=== PATIENT | female | born 1990 | race Caucasian/White ===

== ENCOUNTER 2017-02-18 13:15 | Emergency (ER) | payer OTHER ==
--- NOTE | 2017-02-18 14:13 | DIAGNOSTIC IMAGING REPORT ---
PROCEDURE: XR CHEST 2 VIEW INDICATION: CHEST PAIN TECHNIQUE: PA and lateral views. COMPARISON: None. FINDINGS: Lungs are clear. Heart and mediastinum are normal. Thorax is normal. IMPRESSION: 1. Negative chest.
--- NOTE | 2017-02-18 14:46 | DIAGNOSTIC IMAGING REPORT ---
PROCEDURE: US ABDOMEN ULTRASOUND-LIMITED INDICATION: RUQ PAIN TECHNIQUE: Rubi scale and color Doppler sonographic images of the abdomen were obtained without comparison. COMPARISON: None. FINDINGS: The liver is normal in size, contour, and echotexture. No mass or intrahepatic biliary dilatation. The gallbladder is normal without stones or sludge. The wall is normal thickness measuring 1.8 mm No pericholecystic fluid or Vazquez sign. The extrahepatic common duct is normal measuring 3.1 mm The visualized pancreas is normal without ductal dilatation or peripancreatic fluid collection. The abdominal aorta is normal in its course and caliber. The retrohepatic inferior vena cava is patent. There is appropriate hepatopetal flow in the portal vein. The right kidney measures 11.5 cm in length. There is no perihepatic or perisplenic ascites. IMPRESSION: 1. Normal abdominal ultrasound.
--- NOTE | 2017-02-18 14:56 | ED ORDER SUMMARY ---
..... Patient: MIRZA SIMON OrderSheet [facility] VisitID: [id number] [place] [address] 26y, F Registration Date/Time: 02/18/2017 ORDER SHEET Weight: 61.2 kg (stated) Allergies: No Known Drug Allergy GENERAL ORDERS: CBC w Diff Urgent (13:39 02/18/2017 EKoroleva P.A.-C) (Ack 13:44 OHkennedynandez) (13:54 SStone R.N.) BMP Urgent (13:39 02/18/2017 EKoroleva P.A.-C) (Cancelled: Other13:39 EKoroleva P.A.-C) UA-Culture if indicated Urgent (13:39 02/18/2017 EKoroleva P.A.-C) (Ack 13:44 OHclaus) (13:54 SStone R.N.) Lipase Urgent (13:39 02/18/2017 EKoroleva P.A.-C) (Ack 13:44 OHkennedynandez) (13:54 SStone R.N.) Chest 2V Urgent (13:43 02/18/2017 EKoroleva P.A.-C) (Ack 13:44 OHernandez) (13:54 SStone R.N.) US Abdomen Limited (No) Urgent (13:43 02/18/2017 EKoroleva P.A.-C) (Ack 13:44 OHernandez) CMP Urgent (13:43 02/18/2017 EKoroleva P.A.-C) (Ack 13:44 OHernandez) (13:54 SStone R.N.) Urine Urgent (13:43 02/18/2017 EKoroleva P.A.-C) (Ack 13:44 OHkennedynandez) (13:54 SStone R.N.) - (allergy documentation please) (14:10 02/18/2017 EKoroleva P.A.-C) (14:29 SStone R.N.) MEDICATION ORDERS: IV FLUIDS: IV Saline Lock (13:39 02/18/2017 EKoroleva P.A.-C) (Ack 13:40 SStone R.N.) (13:54 SStone R.N.) Toradol IV 30 mg (NOW) (14:09 02/18/2017 Gardenia Miller) (Ack 14:20 SStone R.N.) (14:40 SStone R.N.) Zofran IV 4 mg (NOW) (14:09 02/18/2017 Gardenia Miller) (Ack 14:20 SStone R.N.) (14:41 SStone R.N.) ORDER SHEET NOTES: [Electronically signed by Juana Coelho P.A.-C (15:08 02/18/2017)] [Electronically signed by Modesta Sky R.N. (15:13 02/18/2017)] [Electronically locked/signed by Modesta Sky R.N. (15:13 02/18/2017)]
--- NOTE | 2017-02-18 14:56 | ED ORDER SUMMARY ---
..... Patient: MIRZA SIMON OrderSheet VisitID: [id number] [place] [address] 26y, F Registration Date/Time: 02/18/2017 ORDER SHEET Weight: 61.2 kg (stated) Allergies: No Known Drug Allergy GENERAL ORDERS: CBC w Diff Urgent (13:39 02/18/2017 EKoroleva P.A.-C) (Ack 13:44 OHkennedynandez) (13:54 SStone R.N.) BMP Urgent (13:39 02/18/2017 EKoroleva P.A.-C) (Cancelled: Other13:39 EKoroleva P.A.-C) UA-Culture if indicated Urgent (13:39 02/18/2017 EKoroleva P.A.-C) (Ack 13:44 OHclaus) (13:54 SStone R.N.) Lipase Urgent (13:39 02/18/2017 EKoroleva P.A.-C) (Ack 13:44 OHkennedynandez) (13:54 SStone R.N.) Chest 2V Urgent (13:43 02/18/2017 EKoroleva P.A.-C) (Ack 13:44 OHernandez) (13:54 SStone R.N.) US Abdomen Limited (No) Urgent (13:43 02/18/2017 EKoroleva P.A.-C) (Ack 13:44 OHernandez) CMP Urgent (13:43 02/18/2017 EKoroleva P.A.-C) (Ack 13:44 OHernandez) (13:54 SStone R.N.) Urine Urgent (13:43 02/18/2017 EKoroleva P.A.-C) (Ack 13:44 OHkennedynandez) (13:54 SStone R.N.) - (allergy documentation please) (14:10 02/18/2017 EKoroleva P.A.-C) (14:29 SStone R.N.) MEDICATION ORDERS: IV FLUIDS: IV Saline Lock (13:39 02/18/2017 EKoroleva P.A.-C) (Ack 13:40 SStone R.N.) (13:54 SStone R.N.) Toradol IV 30 mg (NOW) (14:09 02/18/2017 Gardenia Miller) (Ack 14:20 SStone R.N.) (14:40 SStone R.N.) Zofran IV 4 mg (NOW) (14:09 02/18/2017 Gardenia Miller) (Ack 14:20 SStone R.N.) (14:41 SStone R.N.) ORDER SHEET NOTES: [Electronically signed by Juana Coelho P.A.-C (15:08 02/18/2017)] [Electronically signed by Modesta Sky R.N. (15:13 02/18/2017)] [Electronically locked/signed by Modesta Sky R.N. (15:13 02/18/2017)]
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
--- NOTE | 2017-02-18 15:13 | ED MAR SUMMARY ---
..... Medication Administration Record [facility] [address] [place] [address] Patient: MIRZA SIMON Visit ID: [id number] 26y, F Weight: 61.2 kg Height/Length: 68 in BMI: 20.5 ALLERGIES: No Known Drug Allergy Given 14:31 02/18/2017 Modesta Sky R.N. Medication Administered: ZOFRAN [IVP] (ONDANSETRON HCL), Dose: 4 mg IVP over 2 minute(s), Site: #1 right AC. Medication Ordered: Zofran IV 4 mg (NOW). Given 14:35 02/18/2017 Modesta Sky R.N. Medication Administered: TORADOL [IVP], Dose: 30 mg IVP over 2 minute(s), Site: #1 right AC. Medication Ordered: Toradol IV 30 mg (NOW).
--- NOTE | 2017-02-18 15:13 | ED MAR SUMMARY ---
..... Medication Administration Record [facility] [address] [place] [address] Patient: MIRZA SIMON Visit ID: [id number] 26y, F Weight: 61.2 kg Height/Length: 68 in BMI: 20.5 ALLERGIES: No Known Drug Allergy Given 14:31 02/18/2017 Modesta Sky R.N. Medication Administered: ZOFRAN [IVP] (ONDANSETRON HCL), Dose: 4 mg IVP over 2 minute(s), Site: #1 right AC. Medication Ordered: Zofran IV 4 mg (NOW). Given 14:35 02/18/2017 Modesta Sky R.N. Medication Administered: TORADOL [IVP], Dose: 30 mg IVP over 2 minute(s), Site: #1 right AC. Medication Ordered: Toradol IV 30 mg (NOW).
--- NOTE | 2017-02-18 15:13 | ED MED RECONCILIATION SUMMARY ---
Patient: MIRZA SIMON Medication Reconciliation Report [facility] VisitID: [id number] [place] [address] 26y, F Registration Date/Time: 02/18/2017 Weight: 61.2 kg Height/Length: 68 in. BMI: 20.5 ALLERGIES: No Known Drug Allergy The patient's Home Medications are listed below: THE FOLLOWING MEDICATIONS NEED TO BE RECONCILED: Breo Ellipta Inhalation Doxyxycline The source(s) of the original Home Medication information: Not obtained. The following Medications were given to the patient in the Emergency Department: Toradol [IVP] IVP 30 mg, administered: 02/18/2017 2:35:00 PM Zofran [IVP] IVP 4 mg, administered: 02/18/2017 2:31:00 PM The following Medications were prescribed to the patient: Ventolin HFA oral inhaler: inhale 1 puff every 6 hours for 1 week, as needed for wheezing, until symptoms improve. Dispense one (1) unit. No refill. Substitution is not permissible. -- Juana Coelho, P.A.-C Ultram 50 mg: take 1 orally every 6 hours for 3 days, as needed for pain. Dispense ten (10). Substitution is permissible. -- Juana Coelho, P.A.-C Pepcid 20 mg: take 1 orally every 12 hours for 10 days. Dispense twenty (20). No refills. Substitution is permissible. -- Juana Coelho, P.A.-C
--- NOTE | 2017-02-18 15:13 | ED MED RECONCILIATION SUMMARY ---
Patient: MIRZA SIMON Medication Reconciliation Report [facility] VisitID: [id number] [place] [address] 26y, F Registration Date/Time: 02/18/2017 Weight: 61.2 kg Height/Length: 68 in. BMI: 20.5 ALLERGIES: No Known Drug Allergy The patient's Home Medications are listed below: THE FOLLOWING MEDICATIONS NEED TO BE RECONCILED: Breo Ellipta Inhalation Doxyxycline The source(s) of the original Home Medication information: Not obtained. The following Medications were given to the patient in the Emergency Department: Toradol [IVP] IVP 30 mg, administered: 02/18/2017 2:35:00 PM Zofran [IVP] IVP 4 mg, administered: 02/18/2017 2:31:00 PM The following Medications were prescribed to the patient: Ventolin HFA oral inhaler: inhale 1 puff every 6 hours for 1 week, as needed for wheezing, until symptoms improve. Dispense one (1) unit. No refill. Substitution is not permissible. -- Juana Coelho, P.A.-C Ultram 50 mg: take 1 orally every 6 hours for 3 days, as needed for pain. Dispense ten (10). Substitution is permissible. -- Juana Coelho, P.A.-C Pepcid 20 mg: take 1 orally every 12 hours for 10 days. Dispense twenty (20). No refills. Substitution is permissible. -- Juana Coelho, P.A.-C
--- NOTE | 2017-02-18 15:13 | ED DISCHARGE INSTRUCTIONS ---
Patient: MIRZA SIMON General Instructions [facility] VisitID: [id number] [place] [address] 26y, F Registration Date/Time: 02/18/2017 Abdominal pain of unknown cause. Acute bronchitis. INSTRUCTIONS Warnings: Further evaluation is necessary. Prescription Medications: Ventolin HFA oral inhaler: inhale 1 puff every 6 hours for 1 week, as needed for wheezing, until symptoms improve. Dispense one (1) unit. No refill. Substitution is not permissible. Ultram 50 mg: take 1 orally every 6 hours for 3 days, as needed for pain. Dispense ten (10). Substitution is permissible. Pepcid 20 mg: take 1 orally every 12 hours for 10 days. Dispense twenty (20). No refills. Substitution is permissible. Follow-up: Follow up with your doctor in five days. ADDITIONAL INFORMATION Bronchitis, Viral (Adult: No Abx) You have a viral bronchitis. This illness is contagious during the first few days and is spread through the air by coughing and sneezing, or by direct contact (touching the sick person and then touching your own eyes, nose, or mouth). Most viral illnesses resolve within 10-14 days with rest and simple home remedies, although they may sometimes last for several weeks. Antibiotics will not kill a virus and are generally not prescribed for this condition. Home Care: If symptoms are severe, rest at home for the first 2-3 days. When resuming activity, don't let yourself become overly tired. Do not smoke and avoid the smoke of others. You may use acetaminophen (Tylenol) or ibuprofen (Motrin, Advil) to control fever or pain, unless another pain medicine was prescribed. [NOTE: If you have chronic liver or kidney disease or ever had a stomach ulcer or GI bleeding, talk with your doctor before using these medicines.] (Aspirin should never be used in anyone under 18 years of age who is ill with a fever. It may cause severe liver damage.) Your appetite may be poor so a light diet is fine. Avoid dehydration by drinking 6-8 glasses of fluids per day (water, sport drinks such as Gatorade, juices, tea, soup, etc.). Extra fluids will help loosen secretions in the nose and lung. Ffoc-ozw-fugqxah cold medicines will not shorten the length of the illness, but may be helpful for cough (Robitussin DM), sore throat (Chloraseptic lozenges or spray), nasal and sinus congestion (Actifed or Sudafed). [NOTE: Do not use decongestants if you have high blood pressure.] Follow Up with your doctor or as directed by our staff if you are not improving over the next week. NOTE: If you are age 65 or older, or if you have chronic asthma or COPD, we recommend a PNEUMOCOCCAL VACCINATION every five years and a yearly INFLUENZAVACCINATION (FLU-SHOT) every . Ask your doctor about this. If you had an X-ray, a radiologist will review it. You will be notified of any new findings that may affect your care.] Get Prompt Medical Attention if any of the following occur: Fever over 100.4F (38.0C) for more than three days Trouble breathing, wheezing or pain with breathing Coughing up blood or increased amounts of colored sputum Weakness, drowsiness, headache, facial pain, ear pain or a stiff neck Abdominal Pain, Unknown Cause (Female) The exact cause of your abdominal (stomach) pain is not certain. This does not mean that this is something to worry about, or the right tests were not done. Everyone likes to know the exact cause of the problem, but sometimes with abdominal pain, there is no clear-cut cause, and this could be a good thing. The good news is that your symptoms can be treated, and you will feel better. Your condition does not seem serious now; however, sometimes the signs of a serious problem may take more time to appear. For this reason,it is important for you to watch for any new symptoms, problems,or worsening of your condition. Over the next few days, the abdominal pain may come and go, or be continuous. Other common symptoms can include nausea and vomiting. Sometimes it can be difficult to tell if you feel nauseous, you may just feel bad and not associate that feeling with nausea. Constipation, diarrhea, and a fever may go along with the pain. The pain may continue even if treated correctly over the following days. Depending on how things go, sometimes the cause can become clear and may require further or different treatment. Additional evaluations, medications, or tests may be needed. Home care Your health care provider may prescribe medications for pain, symptoms, or an infection. Follow the health care provider's instructions for taking these medications. General care Rest until your next exam. No strenuous activities. Try to find positions that ease discomfort. A small pillow placed on the abdomen may help relieve pain. Something warm on your abdomen (such as a heating pad) may help, but be careful not to burn yourself. Diet Do not force yourself to eat, especially if having cramps, vomiting, or diarrhea. Water is important so you do not get dehydrated. Soup may also be good. Sports drinks may also help, especially if they are not too acidic. Make sure you don't drink sugary drinks as this can make things worse. Take liquids in small amounts. Do not guzzle them. Caffeine sometimes makes the pain and cramping worse. Avoid dairy products if you have vomiting or diarrhea. Don't eat large amounts at a time. Wait a few minutes between bites. Eat a diet low in fiber (called a low-residue diet). Foods allowed include refined breads, white rice, fruit and vegetable juices without pulp, tender meats. These foods will pass more easily through the intestine. Avoid whole-grain foods, whole fruits and vegetables, meats, seeds and nuts, fried or fatty foods, dairy, alcohol and spicy foods until your symptoms go away. Follow-up care Follow up with your health care provider as instructed, or if your pain does not begin to improve in the next 24 hours. When to seek medical care Seek prompt medical care if any of the following occur: Pain gets worse or moves to the right lower abdomen New or worsening vomiting or diarrhea Swelling of the abdomen Unable to pass stool for more than three days Fever of 100.4F (38C) or higher, or as directed by your healthcare provider. Blood in vomit or bowel movements (dark red or black color) Jaundice (yellow color of eyes and skin) Weakness, dizziness Chest, arm, back, neck or jaw pain Unexpected vaginal bleeding or missed period Call 911 Call emergency services if any of the following occur: Trouble breathing Confusion Fainting or loss of consciousness Rapid heart rate Seizure Epigastric Pain (Uncertain Cause) Epigastric pain can be a sign of disease in the upper abdomen. Common causes include: Acid reflux (stomach acid flowing up into the esophagus) Gastritis (irritation of the stomach lining) Peptic Ulcer Disease Inflammation of the pancreas Gallstone Infection in the gallbladder Pain may be dull or burning. It may spread upward to the chest or to the back. There may be other symptoms such as belching, bloating, cramps or hunger pains. There may be weight loss or poor appetite, nausea or vomiting. Since the diagnosis of your pain is not certain yet, further tests will be needed. Sometimes the doctor will treat you for the most likely condition to see if there is improvement before doing further tests. Home Care: Unless told otherwise, you may try antacids (Mylanta or Maalox) help neutralize stomach acid. This may relieve your pain. Take 1-2 tablespoons or tablets one hour after meals and at bedtime. The liquid form coats the stomach better than the chewable tablets and is preferred. If Tagamet (cimetidine), Zantac (ranitidine), or Carafate (sucralfate) has also been prescribed, allow one hour between taking this medicine and taking the antacids. Avoid foods that irritate the stomach. Follow a light diet until you are feeling better. Avoid alcohol, caffeine, and tobacco. Talk to your doctor before taking any gfef-eor-qjwddtt medicine that contains aspirin or an anti-inflammatory drug such as ibuprofen, Advil, Motrin, Naprosyn, or Aleve. Follow Up with your doctor or as advised if you do not improve over the next 48 hours. Get Prompt Medical Attention if any of the following occur: Stomach pain worsens or moves to the right lower part of the abdomen Chest pain appears, or if it worsens or spreads to the chest, back, neck, shoulder, or arm Frequent vomiting (cant keep down liquids) Blood in the stool or vomit (red or black color) Feeling weak or dizzy, fainting, or having trouble breathing Fever of 100.4F (38C) or higher, or as directed by your healthcare provider Abdominal swelling Symptoms With Uncertain Cause [Adult] Based on the exam and any tests that were performed today, the exact cause of your symptoms is not certain. While your condition does not seem serious, the signs of a serious problem may take more time to appear. Therefore, it is important for you to watch for any new symptoms or worsening of your condition.Follow up with your doctor or this facility, as directed.A repeat physical exam or additional testing at a later time may uncover a cause for your symptoms that is not evident today. Home Care: Resume your usual activities and diet when this feels comfortable to do so. Follow Up with your doctor, or as advised by our staff.Contact your doctor sooner if your symptoms do not begin to improve in the next few days. [NOTE: If you had an x-ray, CT scan, ultrasound, or ECG (electrocardiogram), it will be reviewed by a specialist. You will be notified of any new findings that may affect your care.] Get Prompt Medical Attention if any of the following occur: Current symptoms get worse New symptoms appear Tramadol Hydrochloride Oral tablet What is this medicine? TRAMADOL (TRA ma dole) is a pain reliever. It is used to treat moderate to severe pain in adults. How should I use this medicine? Take this medicine by mouth with a full glass of water. Follow the directions on the prescription label. If the medicine upsets your stomach, take it with food or milk. Do not take more medicine than you are told to take. Talk to your recovery rn regarding the use of this medicine in children. Special care may be needed. What side effects may I notice from receiving this medicine? Side effects that you should report to your doctor or health critical care registered nurse as soon as possible: allergic reactions like skin rash, itching or hives, swelling of the face, lips, or tongue breathing difficulties, wheezing confusion itching light headedness or fainting spells redness, blistering, peeling or loosening of the skin, including inside the mouth seizures Side effects that usually do not require medical attention (report to your doctor or health critical care registered nurse if they continue or are bothersome): constipation dizziness drowsiness headache nausea, vomiting What may interact with this medicine? Do not take this medicine with any of the following medications: MAOIs like Carbex, Eldepryl, Marplan, Nardil, and Parnate This medicine may also interact with the following medications: alcohol or medicines that contain alcohol antihistamines benzodiazepines bupropion carbamazepine or oxcarbazepine clozapine cyclobenzaprine digoxin furazolidone linezolid medicines for depression, anxiety, or psychotic disturbances medicines for migraine headache like almotriptan, eletriptan, frovatriptan, naratriptan, rizatriptan, sumatriptan, zolmitriptan medicines for pain like pentazocine, buprenorphine, butorphanol, meperidine, nalbuphine, and propoxyphene medicines for sleep muscle relaxants naltrexone phenobarbital phenothiazines like perphenazine, thioridazine, chlorpromazine, mesoridazine, fluphenazine, prochlorperazine, promazine, and trifluoperazine procarbazine warfarin What if I miss a dose? If you miss a dose, take it as soon as you can. If it is almost time for your next dose, take only that dose. Do not take double or extra doses. Where should I keep my medicine? Keep out of the reach of children. Store at room temperature between 15 and 30 degrees C (59 and 86 degrees F). Keep container tightly closed. Throw away any unused medicine after the expiration date. What should I tell my health care provider before I take this medicine? They need to know if you have any of these conditions: brain tumor depression drug abuse or addiction head injury if you frequently drink alcohol containing drinks kidney disease or trouble passing urine liver disease lung disease, asthma, or breathing problems seizures or epilepsy suicidal thoughts, plans, or attempt; a previous suicide attempt by you or a family member an unusual or allergic reaction to tramadol, codeine, other medicines, foods, dyes, or preservatives or trying to get breast-feeding What should I watch for while using this medicine? Tell your doctor or health critical care registered nurse if your pain does not go away, if it gets worse, or if you have new or a different type of pain. You may develop tolerance to the medicine. Tolerance means that you will need a higher dose of the medicine for pain relief. Tolerance is normal and is expected if you take this medicine for a long time. Do not suddenly stop taking your medicine because you may develop a severe reaction. Your body becomes used to the medicine. This does NOT mean you are addicted. Addiction is a behavior related to getting and using a drug for a non-medical reason. If you have pain, you have a medical reason to take pain medicine. Your doctor will tell you how much medicine to take. If your doctor wants you to stop the medicine, the dose will be slowly lowered over time to avoid any side effects. You may get drowsy or dizzy. Do not drive, use machinery, or do anything that needs mental alertness until you know how this medicine affects you. Do not stand or sit up quickly, especially if you are an older patient. This reduces the risk of dizzy or fainting spells. Alcohol can increase or decrease the effects of this medicine. Avoid alcoholic drinks. You may have constipation. Try to have a bowel movement at least every 2 to 3 days. If you do not have a bowel movement for 3 days, call your doctor or health critical care registered nurse. Your mouth may get dry. Chewing sugarless gum or sucking hard candy, and drinking plenty of water may help. Contact your doctor if the problem does not go away or is severe. You have been given the following additional information: Bronchitis, No Antibiotic (Adult) Abdominal Pain, Unknown Cause, (Female) Epigastric Pain (Uncertain Cause) Symptoms With Uncertain Cause Tramadol Hydrochloride Oral tablet (Electronically signed by Juana Coelho P.A.-C 02/18/2017 15:08)
== END 2017-02-18 15:06 | disposition home or self-care (01) ==
LOC: ED SRH 13:15
DX: J20.9 Acute bronchitis, unspecified (principal); R10.9 Unspecified abdominal pain; Z79.2 Long term (current) use of antibiotics; Z72.0 Tobacco use
CPT/HCPCS: 90004; 90100; 92235; 93070; 95059